=== PATIENT | male | born 1975 | race African-American/Black ===

== ENCOUNTER 2019-05-10 20:47 | Emergency (ER) | payer MEDICAID ==
[~2019-05-10] VITALS: Ht 193 cm; Wt 122.0 kg
[2019-05-10] MEDS ORDERED: HYDROCODONE/ACETAMINOPHEN 5/325MG TABLET PO ONE (23:45)
[2019-05-10] MEDS ORDERED: BACITRACIN ZINC OINT UDPKT TOP ONE (23:45)
[2019-05-10] MEDS ORDERED: LIDOCAINE HCL/PF 1% 10 MG/ML 5ML VIAL IJ ONE (23:45)
[2019-05-11 01:32] VITALS: BP 148/74
== END 2019-05-11 01:33 | disposition home or self-care (01) ==
LOC: ER 20:47
DX: S61.210A Laceration without foreign body of right index finger without damage to nail, initial encounter (principal); S61.212A Laceration without foreign body of right middle finger without damage to nail, initial encounter; W18.39XA Other fall on same level, initial encounter; Y93.89 Activity, other specified; Y92.89 Other specified places as the place of occurrence of the external cause; Y99.8 Other external cause status
CPT/HCPCS: 12002; 73130; 99283; J3490

== ENCOUNTER 2019-05-30 12:17 | Emergency (ER) | payer MEDICAID ==
[~2019-05-30] VITALS: Ht 193 cm; Wt 120.0 kg
[2019-05-30 13:01] VITALS: BP 126/77
== END 2019-05-30 13:48 | disposition home or self-care (01) ==
LOC: ER 13:21
DX: S61.411D Laceration without foreign body of right hand, subsequent encounter (principal); X58.XXXD Exposure to other specified factors, subsequent encounter
CPT/HCPCS: 99281